=== PATIENT | female | born 1960 | race Caucasian/White ===

== ENCOUNTER 2018-12-11 12:21 | Emergency (ER) | payer SELFPAY ==
[2018-12-11 12:29] VITALS: BMI 31.1
[2018-12-11 12:31] VITALS: RESP 18; O2SAT 97
--- NOTE | 2018-12-11 13:37 | RAD ---
PROCEDURE: Radiographs of the Left Shoulder, two views Radiographs of the left humerus, two views HISTORY: fall COMPARISON: None available FINDINGS: Comminuted fracture deformity of the left humeral neck with associated soft tissue swelling. Humeral head location or dislocation cannot be adequately assessed on the provided two views. The distal clavicle and underlying ribs appear intact. No evidence of radiopaque foreign body. IMPRESSION: Comminuted fracture deformity of the left humeral neck with associated soft tissue swelling. Humeral head location or dislocation cannot be adequately assessed on the provided two views.
--- NOTE | 2018-12-11 13:44 | RAD ---
Date of service: 12/11/2018 Indication: fall Single lateral view of the left forearm Comparison: None available Findings: Limited single lateral view of the left forearm demonstrate evidence of displaced fracture deformity proximally likely involving both the radius and the ulna however this is inadequately assessed on this single view. Soft tissue swelling. No evidence of radiopaque foreign body. Impression: Limited single lateral view of the left forearm demonstrate evidence of displaced fracture deformity proximally likely involving both the radius and the ulna however this is inadequately assessed on this single view. Soft tissue swelling.
--- NOTE | 2018-12-11 13:50 | RAD ---
PROCEDURE: Left wrist Radiographs. Three views. HISTORY: fall COMPARISON: None available. FINDINGS: BONES: No acute displaced fracture. JOINTS: No dislocation. SOFT TISSUES: Unremarkable. No evidence of radiopaque foreign body OTHER FINDINGS: None. IMPRESSION: No acute displaced fracture, dislocation, or significant joint effusion identified. If symptoms persist, or if there is continued clinical concern, x-ray follow-up in 7-10 days should be considered.
[2018-12-11] MEDS ORDERED: Morphine 4 MG/ML VIAL ONE (16:11)
--- NOTE | 2018-12-11 16:21 | C.PDOC ---
History Of Present Illness 58 y/o female, with history of morbid obesity, presents to the ED for evaluation of left upper extremity pain. Patient states she was at the top of the stairs (around 8 steps above the ground), when she accidentally slipped, fell backwards, and landed all her weight onto her left arm. Patient reports hitting her head onto carpeted floor, but denies LOC. She is now c/o pain to her entire left arm (pain to left shoulder, left elbow and left wrist). Patient reports a diffuse headache, but attributes this to being in pain this afternoon. Patient denies any other complaints aside from the extremity pain. Patient denies chest pain, neck pain, shortness of breath, nausea, vomiting. Time Seen by Provider: 12/11/18 12:39 Chief Complaint (Nursing): Upper Extremity Problem/Injury History Per: Patient History/Exam Limitations: no limitations Onset/Duration Of Symptoms: Hrs Current Symptoms Are (Timing): Still Present Quality: "Pain" Additional History Per: Patient Past Medical History Reviewed: Historical Data, Nursing Documentation, Vital Signs Vital Signs: Last Vital Signs Temp 97.5 F L 12/11/18 12:30 Pulse 63 12/11/18 12:30 Resp 18 12/11/18 12:30 BP 118/75 12/11/18 12:30 Pulse Ox 97 12/11/18 12:30 - Medical History PMH: No Chronic Diseases Surgical History: No Surg Hx Family History: States: Unknown Family Hx - Social History Hx Alcohol Use: No Hx Substance Use: No - Immunization History Hx Tetanus Toxoid Vaccination: No Hx Influenza Vaccination: No Hx Pneumococcal Vaccination: No Review Of Systems Cardiovascular: Negative for: Chest Pain Respiratory: Negative for: Shortness of Breath Gastrointestinal: Negative for: Nausea, Vomiting Musculoskeletal: Positive for: Shoulder Pain (left), Arm Pain (left ). Negative for: Neck Pain Neurological: Positive for: Headache (diffuse ), Other (+head injury, (-)LOC ). Negative for: Weakness, Numbness Physical Exam - Physical Exam Appears: Non-toxic, No Acute Distress, Other (uncomfortable, visibly in pain ) Skin: Normal Color, Warm, Dry Head: Atraumatic, Normacephalic, No Tenderness, No Swelling, No Abrasion, No Laceration Eye(s): bilateral: Normal Inspection, PERRL, EOMI Oral Mucosa: Moist Neck: Normal ROM, No Midline Cervical Tenderness, No Paracervical Tenderness, S upple Chest: Symmetrical, No Deformity, No Tenderness Cardiovascular: Rhythm Regular, No Murmur Respiratory: Normal Breath Sounds, No Rales, No Rhonchi, No Wheezing Gastrointestinal/Abdominal: Soft, No Tenderness, No Guarding, No Rebound Extremity: Normal ROM, Tenderness (to left shoulder, elbow and wrist ), Capillary Refill (less than 2 seconds ), No Deformity (no obvious deformities noted ) Pulses: Left Radial: Normal, Right Radial: Normal Neurological/Psych: Normal Speech, Normal Cognition, Normal Motor, Normal Sensation ED Course And Treatment O2 Sat by Pulse Oximetry: 97 (on RA) Pulse Ox Interpretation: Normal Medical Decision Making Medical Decision Making: Progress: CT left upper extremity, left extremity XR ordered and reviewed. Morphine IM, Motrin PO and Tylenol PO given. XR results show multiple fractures to the proximal ulna and humerus. Case d/w Dr. Barahona, who recommends posterior splint and follow up with clinic Patient was d/c with Rx for Tramadol and Motrin. Disposition Discussed With : Joni Barahona III Counseled Patient/Family Regarding: Studies Performed, Diagnosis, Need For Followup, Rx Given - Disposition Referrals: at [facility] [Outside] Joni Barahona III, MD [Staff Provider] - Disposition: HOME/ ROUTINE Disposition Time: 16:19 Condition: IMPROVED Additional Instructions: Siga con el [facility]. Prescriptions: Ibuprofen [Motrin] 600 mg PO TID #15 tab traMADol [Ultram] 50 mg PO TID #12 tab Instructions: Upper Arm Fracture Forms: Gen Discharge Inst Kazakh, [facility] (Kazakh), Work Excuse - POA Present On Arrival: None - Clinical Impression Clinical Impression: Fracture of bone, Closed left arm fracture - Scribe Statement The provider has reviewed the documentation as recorded by the Scribe (Genny Nunez) Provider Attestation: All medical record entries made by the Scribe were at my direction and personally dictated by me. I have reviewed the chart and agree that the record accurately reflects my personal performance of the history, physical exam, medical decision making, and the department course for this patient. I have also personally directed, reviewed, and agree with the discharge instructions and disposition.
--- NOTE | 2018-12-11 16:21 | CT ---
MRI left humerus HISTORY: Multiple fractures. COMPARISON: X-ray dated 12/11/2018 TECHNIQUE: Multiple contiguous axial images were performed through the left humerus without the use of intravenous contrast. Subsequently, sagittal and coronal reformatted images were obtained. FINDINGS: Somewhat limited study given the large field of view and suboptimal patient positioning and technique. Dedicated left shoulder and left elbow CT examinations may be helpful if clinically indicated. Angulated and distracted fracture through the left proximal humerus extending through the humeral head from the greater tuberosity to the humeral neck. Humeral head appears subluxed posteriorly. Few comminuted fracture fragments are noted adjacent to the fracture site. Fracture deformity of the radial head with minimal distraction at the head neck junction. Markedly comminuted and distracted fracture of the proximal ulna with approximately 1.4 centimeter distraction of the distal fracture fragment. More proximally, there is 9 millimeters of diastasis of the fracture fragment at the level of the olecranon with additional fracture lines noted at the articular surface of the olecranon. Prominent elbow joint effusion. Mildly comminuted fracture through the base of the left coracoid process. Partial opacification of the left mastoid air cells. Degenerative changes in the spine. Impression: Somewhat limited study given the large field of view and suboptimal patient positioning and technique. Dedicated left shoulder and left elbow CT examinations may be helpful if clinically indicated. 1. Angulated and distracted fracture through the left proximal humerus extending through the humeral head from the greater tuberosity to the humeral neck. Humeral head appears subluxed posteriorly. Few comminuted fracture fragments are noted adjacent to the fracture site. 2. Fracture deformity of the radial head with minimal distraction at the head neck junction. 3. Markedly comminuted and distracted fracture of the proximal ulna with approximately 1.4 centimeter distraction of the distal fracture fragment. More proximally, there is 9 millimeters of diastasis of the fracture fragment at the level of the olecranon with additional fracture lines noted at the articular surface of the olecranon. 4. Prominent elbow joint effusion. 5. Mildly comminuted fracture through the base of the left coracoid process. 6. Partial opacification of the left mastoid air cells.
[2018-12-11 16:49] VITALS: BP 106/70; PULSE 61; TEMP 98
== END 2018-12-11 16:30 | disposition home or self-care (01) ==
LOC: C.ER 12:21
DX: S42.202A Unspecified fracture of upper end of left humerus, initial encounter for closed fracture (principal); W01.0XXA Fall on same level from slipping, tripping and stumbling without subsequent striking against object, initial encounter; E66.01 Morbid (severe) obesity due to excess calories
CPT/HCPCS: 29105; 73030; 73060; 73090; 73110; 73200; 96372; 99285; J2270